=== PATIENT | male | born 1955 | race Caucasian/White ===

== ENCOUNTER 2023-08-22 23:55 | Inpatient (IN) | payer OTHER, SELFPAY ==
--- NOTE | ~2023-08-22 | US_ITS ---
EXAMINATION: US venous doppler LE BI EXAMINATION: US venous doppler LE DATE: 08/23/2023 14:49 INDICATION: Left calf red and swollen . TECHNIQUE: Grayscale images without and with compression and Doppler images of the left lower extremi ty veins were obtained. COMPARISON: None FINDINGS: The left common femoral vein, profunda (deep) femoral vein, femoral vein, popliteal vein, peroneal v ein, posterior tibial veins, gastrocnemius vein, and greater saphenous vein are patent. IMPRESSION: Patent left lower extremity veins. No evidence of deep venous thrombosis. Reviewed, dictated and finalized at location K. ARISON SHOPPER
--- NOTE | ~2023-08-22 | CT_ITS ---
EXAMINATION: CT chest abdomen pelvis w con DATE: 08/23/2023 08:18 INDICATION: Sepsis TECHNIQUE: Transaxial computed tomographic images of the chest, abdomen, and pelvis were obtained aft er the administration of 100 cc of Omnipaque 350 intravenous contrast. The dose-length product (DLP) was 2066.97 mGy-cm. Automated exposure control and iterative reconstruction technique were employed. COMPARISON: None FINDINGS: CHEST CT: There is mild emphysema. There is a 3.1 x 2.1 cm groundglass nodule in the right upper lobe. Addition al subsolid nodules of the right upper lobe measure 1.8 cm and 1.5 cm. There is mild dependent atelec tasis. No pleural effusion or pneumothorax. There is mild right hilar lymphadenopathy. The heart size is normal. Calcified coronary artery atherosclerosis is noted. There is moderate thoracic spondylosi s. ABDOMEN/PELVIS CT: The liver is diffusely low in attenuation when compared with the spleen, consistent with hepatic stea tosis. There is subtle nodularity of the liver surface. The spleen, pancreas, gallbladder, and adrena l glands are normal. Cysts of the kidneys measure up to 3.7 cm There is calcified atherosclerosis of the aorta and many of the other arteries. There is mild left inguinal lymphadenopathy and anterior brown bcutaneous edema in the proximal left lower extremity. There is moderate lumbar spondylosis. No free intraperitoneal gas or evidence of bowel obstruction. IMPRESSION: 1. Mild right inguinal lymphadenopathy with anterior inflammatory change in the proximal left lower e xtremity of unclear etiology. Recommend correlation for left lower extremity infection. 2. Groundglass nodules of the right upper lobe which could be infectious or inflammatory however mini nancy invasive adenocarcinoma could have a similar appearance. Follow-up chest CT in six months is re commended. 3. Diffuse hepatic steatosis. 4. Findings suggestive of cirrhosis. Reviewed, dictated and finalized at location L. [facility] IMPRESSION: 1. Mild right inguinal lymphadenopathy with anterior inflammatory change in the proximal left lower extremity of unclear etiology. Recommend correlation for l eft lower extremity infection. 2. Groundglass nodules of the right upper lobe which could be infectious or inf lammatory however minimally invasive adenocarcinoma could have a similar appear ance. Follow-up chest CT in six months is recommended. 3. Diffuse hepatic steatosis. 4. Findings suggestive of cirrhosis.
--- NOTE | ~2023-08-22 | XR_ITS ---
EXAMINATION: XR tibia fibula LT 2V INDICATION: Left leg redness and swelling TECHNIQUE: Two views of the left tibia are obtained on four radiographs. COMPARISON: None available FINDINGS: Bone alignment is normal. No fracture is identified. Calcified atherosclerosis is noted. Th ere is osteoarthritis of the ankle and knee. Posterior and plantar calcaneal enthesophytes are noted. There appears to be diffuse soft tissue edema of the lower limb. IMPRESSION: 1. Apparent diffuse soft tissue edema of the lower limb without acute osseous abnormality identified. Reviewed, dictated and finalized at location L. RTISING WRITER IMPRESSION: 1. Apparent diffuse soft tissue edema of the lower limb without acute osseous a bnormality identified.
--- NOTE | ~2023-08-22 | XR_ITS ---
Clinical Indication: Fever PA and lateral views of the chest: Comparison: 10/24/2017 Findings: The lungs are clear, without evidence of focal consolidation or pleural effusion. Cardiome diastinal silhouette is within normal limits. Bones and soft tissues are unremarkable. Impression: Normal chest. Reviewed, dictated and finalized at [facility]. [employer]NAGER Impression: Normal chest.
[2023-08-23] VITALS (25 sets, daily range): BP systolic 84–167; BP diastolic 47–68; PULSE 47–94; RESP 13–25; TEMP 36–38.4; O2SAT 90–97; BMI 42.6
--- NOTE | 2023-08-23 | ECHO_ITS ---
Patient Info Name: Brad Palacios Age: 68 years : 1955 Gender: Male Ht: 74 in Wt: 324 lbs BSA: 2.83 m2 HR: 50 bpm BP: 84 / 47 mmHg Heart Rhythm: Sinus Rhythm, Bradycardia Technical Quality: Good Exam Date: 08/23/2023 9:01 AM Exam Location: Echo Lab Patient Status: Inpatient Admit Date: 08/23/2023 Staff Ordering Physician: Flakita Wilder APRN Silk Hanger: Nohemy Lopes RDCS Attending Provider: Chris Gomez MD Referring Physician: Tina DAS; Exam Type: CA echo dop color flow w con Study Info Indications - sepsis Complete two-dimensional, color flow and Doppler transthoracic echocardiogram is performed with contrast to opacify the left ventricle and to improve the deliniation of the left ventricle endocardial borders. Contrast/Agitated Saline Contrast/Ag. Saline: Definity Amount: 3.00 ml Summary 1. Left ventricular chamber dimension is normal. 2. Left ventricular systolic function is normal, estimated at 55-60%. 3. There is moderately increased left ventricular wall thickness. 4. Right ventricular systolic function is normal. 5. There is mild aortic valve regurgitation. 6. There is mild tricuspid valve regurgitation. Left Ventricle Left ventricular chamber dimension is normal. Left ventricular systolic function is normal, estimated at 55-60%. There is moderately increased left ventricular wall thickness. Left ventricular septal wall motion is abnormal with septal motion related to bundle branch block. Right Ventricle Right ventricular chamber dimension is normal. Right ventricular systolic function is normal. Left Atria Left atrial chamber dimension is normal. Right Atria Right atrial chamber dimension is normal. Atrial Septum Intact interatrial septum visualized by color flow imaging. Aortic Valve The aortic valve is not well visualized. There is no aortic valve stenosis. There is mild aortic valve regurgitation. There is mild aortic valve calcification. Pulmonic Valve The pulmonic valve is not well visualized. There is trace pulmonic regurgitation. Mitral Valve There is trace mitral valve regurgitation. The mitral valve annulus is moderately calcified. Tricuspid Valve There is mild tricuspid valve regurgitation. Pericardium/Pleural The pericardium appears epicardial fat pad. There is no pericardial effusion. Inferior Vena Cava Inferior vena cava is not well visualized. Aorta The aortic root size at the sinus of Valsalva is normal. Left Ventricular Outflow Tract Name Value Normal LVOT 2D LVOT Diameter 2.19 cm LVOT Doppler LVOT Peak Gradient 3 mmHg LVOT Mean Gradient 2 mmHg LVOT VTI 28.62 cm LVOT VTI/AV VTI Ratio 0.82 LVOT Stroke Volume 108.15 ml LVOT CO 3.82 l/min LVOT CI 1.35 L/min/m2 Pulmonic Valve Name Value Normal
--- NOTE | 2023-08-23 00:06 | ECG_ITS ---
Measurements Intervals [place] Rate: 69 P: 11 MT: 195 QRS: 262 QRSD: 129 T: 44 QT: 418 QTc: 449 Interpretive Statements SINUS RHYTHM RIGHT AXIS DEVIATION POSSIBLE LEFT ATRIAL ENLARGEMENT RIGHT BUNDLE BRANCH BLOCK BASELINE ARTIFACT- I, II, III, AVR, AVL, AVF, V1-V2, V5-V6 ABNORMAL ECG NO PREVIOUS ECG AVAILABLE FOR COMPARISON Electronically Signed On 08-23-2023 6:36:45 [employer] by Amandeep Brand D.O.
--- NOTE | 2023-08-23 01:10 | ED.FEVER ---
HPI - Fever General Chief Complaint: Fever <Ju Lemus PA-C - Last Filed: 08/27/23 09:27> Stated Complaint: 103.2 fever at home <TJ Villagomez Last Filed: 08/27/23 09:27> Time Seen by Provider: 08/23/23 00:53 <TJ Villagomez Last Filed: 08/27/23 09:27> Source: patient <TJ Villagomez Last Filed: 08/27/23 09:27> Mode of arrival: ambulatory <TJ Villagomez Last Filed: 08/27/23 09:27> Limitations: no limitations <TJ Villagomez Last Filed: 08/27/23 09:27> History of Present Illness HPI Narrative: This is a 68 year old male that presents to the ER for cold symptoms present over the last couple of days. Reports acute worsening today with fevers and malaise. Reports cough, congestion, rhinorrhea. Reports shortness of breath and intermittent chest discomfort. He did a home COVID test which was negative. Took 1,000mg of Tylenol before coming in for further evaluation. <TJ Villagomez Last Filed: 08/27/23 09:27> Related Data Home Medications: Home Medications Medication Instructions Recorded Confirmed amiodarone 200 mg tablet 200 mg PO DAILY 08/23/23 08/23/23 amlodipine 5 mg tablet 5 mg PO DAILY 08/23/23 08/23/23 aspirin 81 mg tablet,delayed 81 mg PO DAILY 08/23/23 08/23/23 release atorvastatin 40 mg tablet 40 mg PO DAILY 08/23/23 08/23/23 isosorbide mononitrate 60 mg 60 mg PO DAILY 08/23/23 08/23/23 tablet,extended release 24 hr levothyroxine 100 mcg tablet 100 mcg PO DAILY 08/23/23 08/23/23 lisinopril 10 mg tablet 10 mg PO DAILY 08/23/23 08/23/23 metoprolol succinate 100 mg 100 mg PO DAILY 08/23/23 08/23/23 tablet,extended release 24 hr pantoprazole 40 mg tablet,delayed 40 mg PO DAILY 08/23/23 08/23/23 release rivaroxaban 20 mg tablet (Xarelto) 20 mg PO DAILY 08/23/23 08/23/23 <Ju Lemus PA-C - Last Filed: 08/27/23 09:27> Allergies/Adverse Reactions: Allergies Allergy/AdvReac Type Severity Reaction Status Date / Time No Known Allergies Allergy Verified 08/25/23 11:46 <Ju Lemus PA-C - Last Filed: 08/27/23 09:27> Review of Systems Review of Systems: CONSTITUTIONAL: Denies fever ENT: Reports rhinorrhea, congestion, sore throat CARDIOVASCULAR: Reports chest pain, and edema. RESPIRATORY: Reports cough and dyspnea. <Ju Lemus PA-C - Last Filed: 08/27/23 09:27> All systems reviewed & are unremarkable except as noted in HPI and below <Ju Lemus PA-C - Last Filed: 08/27/23 09:27> [facility] Past Medical History Medical History: Medical History (Updated 08/27/23 @ 09:27 by Ju Lemus PA-C) GERD (gastroesophageal reflux disease) History of atrial fibrillation History of hyperlipidemia History of hypertension Hypothyroidism Obstructive sleep apnea <Ju Lemus PA-C - Last Filed: 08/27/23 09:27> Social History Social History: Social History (System 08/25/23 @ 11:46 by Chepe Rojsa) Smoking packs per day: 1 Smoking cigarettes per day: 20.0 Smoking status: Current every day smoker Tobacco type: cigarettes Alcohol intake: never Substance use: never Lack of Transportation: No Lack of Food: Never True Current Housing: I Have Housing Concerned About Future Housing: No Difficulty Paying Gas/Electric Bills: No Difficulty Paying for Meds: No Currently Unemployed: No Education: High School Diploma/GED Difficulty w/ Childcare or Family Care: No Spiritual care concerns: No <Ju Lemus PA-C - Last Filed: 08/27/23 09:27> Exam Narrative: GENERAL: Ill-appearing, obese, and in no acute distress. HEAD: Normocephalic, atraumatic. EYES: EOMI. ENT: Nares clear, no rhinorrhea or epistaxis. Mucous membranes moist. Oropharynx without tonsillar hypertrophy exudate or other lesions. Bilateral TMs pearly eagle non-bulging NECK: Supple. No adenopathy or masses. CHEST: No respiratory distress. Rales in the right lower lobe.
[2023-08-23 01:20] LABS: Influenza A QL RT-PCR Negative (Negative); Influenza B QL RT-PCR Negative (Negative); RSV RNA, RT-PCR Negative (Negative); SARS-CoV-2 RNA PCR Negative (Negative)
[2023-08-23] MEDS: IBUPROFEN 600 MG TABLET PO (01:48)
[2023-08-23 02:59] LABS: Basophils Percent Auto 0.2 % (0.2-1.2); Eosinophils Percent Auto 0.2 % (0-4.4); Hematocrit 44.5 % (42.0-52.0); Hemoglobin 14.2 g/dL (14.0-18.0); Immature Granulocyte Absolute 0.07 K/mm3 (0.00-0.031); Immature Granulocyte Percent A 0.7 % (0-0.5); Lymphocytes Absolute Auto 0.32 K/mm3 (0.9-3.2); Lymphocytes Percent Auto 3.3 % (18.3-44.2); Mean Corpuscular HGB Conc 31.9 g/dl (32-36); Mean Corpuscular Hemoglobin 32.3 pg (26-34); Mean Corpuscular Volume 101.4 fl (80-100); Mean Platelet Volume 11.1 fl (7.4-10.4); Monocytes Absolute Auto 0.6 K/mm3 (0.1-0.6); Monocytes Percent Auto 6.2 % (2.6-8.5); Neutrophils Absolute Auto 8.8 K/mm3 (1.3-6.7); Neutrophils Percent Auto 89.4 % (45.5-73.1); Platelet Count Result 141 k/mm3 (150-375); Red Blood Count 4.39 M/mm3 (4.6-6.20); White Blood Count 9.8 K/mm3 (4.5-10.0)
[2023-08-23 03:10] LABS: INR 2.1; Prothrombin Time 24.5 Seconds (11.1-14.7)
[2023-08-23 03:11] LABS: Alanine Aminotransferase 26 U/L (6-50); Albumin Level 3.7 g/dL (3.5-5.1); Alkaline Phosphatase 89 U/L (38-126); Anion Gap 7 mmol/L (8-16); Aspartate Amino Transferase 25 U/L (17-59); Bilirubin,Total 0.8 mg/dL (0.2-1.3); Blood Urea Nitrogen 41 mg/dL (9-20); Calcium 9.1 mg/dL (8.4-10.2); Carbon Dioxide 22 mmol/L (22-30); Chloride 110 mmol/L (98-107); Estimated CRCL calculation 77 ml/min; Estimated Glomerular Filt Rate 55; Glucose 124 mg/dL (65-110); Potassium 2.9 mmol/L (3.4-5.0); Sodium 139 mmol/L (137-145)
[2023-08-23 03:12] LABS: Lactic Acid Reflex 2.2 mmol/L (0.7-2.0)
[2023-08-23 03:14] LABS: CRP 0.9 mg/dL (<1.0)
[2023-08-23 03:21] LABS: NT Pro B Type Natriuretic Pept 894 pg/mL (19.9-100)
[2023-08-23 03:23] LABS: Troponin I 0.031 ng/mL (0.000-0.034)
[2023-08-23] MEDS: SODIUM CHLORIDE 0.9% IV 500 ML 999 ML IV CONT (03:49)
[2023-08-23] MEDS: AZITHROMYCIN 500 MG/NS 250 ML 500 MG/250 ML BAG 250 MG IVPB (03:54)
[2023-08-23] MEDS: POTASSIUM CHLORIDE 20 MEQ ER TABLET 40 MEQ PO (04:22)
[2023-08-23] MEDS: SODIUM CHLORIDE 0.9% IV 2,000 ML 999 ML IV CONT (04:22)
[2023-08-23 05:57] LABS: Reflex Lactic Acid Yes or No Add Lactic
--- NOTE | 2023-08-23 06:41 | ADMGEN ---
This patient, Brad Palacios, was admitted to [facility] Surg Room 316-02. Patient/family oriented to hospital policies and general routines including ID bracelet, bed and alarms, visiting hours, pain management, procedures, bathroom and other care routines, personal items, smoking policy, room service/diet, and visiting hours. Information on how to activate the Rapid Response Team has been discussed. Patient/Family are encouraged to report perceived risks to care and to ask questions if they do not understand what they are told or what they should do.
[2023-08-23] MEDS: SODIUM CHLORIDE 0.9% IV 1,000 ML 999 ML IV CONT (07:11)
[2023-08-23 07:14] LABS: Lactic Acid 2.5 mmol/L (0.7-2.0)
--- NOTE | 2023-08-23 07:51 | PM.IMHP ---
H&P: HPI History of Present Illness Date/Time: 08/23/23 07:51 Chief Complaint: Fever Narrative: This is a 68 year old male with a significant past medical history of Atrial fibrillation, hyperlipidemia, and hypertension who presented to the hospital with fever, cough, congestion, rhinorrhea, malaise, and shortness of breath. Patient states that he has not been feeling well over the last 3 days. He did a home COVID test which was negative. T-max at home was 103.3. He took 1g Tylenol before presenting to the hospital. On arrival to the ER his temp was T-max 101.1, RR 25. Patient had a chest x-ray while in the ER which shown a normal chest as the read, he received 2L NS, and was given a dose of Rocephin and Azithromycin. Patient was admitted to the medical floor. Blood pressures slowly trended down through the night with the lowest read 84/47 and HR trending down to 48-50 when admitted to the Med floor. I was called about the low blood pressure with patient meeting sepsis criteria/ septic shock with the Temp of 101.1, RR-22, hypotension, lactic acid 2.5, and cellulitis of the left lower extremity. I gave the patient 1 L normal saline bolus due to the hypotension. also sent him for a chest abdomen pelvis CT which revealed mild right inguinal lymphadenopathy with anterior inflammatory change in the proximal left lower extremity unclear etiology, ground-glass nodules the right upper lobe which could be infectious or inflammatory, diffuse hepatic steatosis, cirrhosis. On examination his left leg was swollen greater than the right mostly in the calf area, with erythema and warmth to the touch. Vancomycin was added. According to the the patient he has had multiple issues with cellulitis in his legs where he had to come in for IV antibiotics. Patient denies any pain in the lower extremity. He also denies any lightheadedness, headache, visual changes, nausea, vomiting, diarrhea, abdominal pain, shortness of breath, chest pain. He does endorse fevers and chills. His lungs are relatively clear to auscultation, bowel sounds are present, he is passing gas, he denies any urinary symptoms. Review of Systems Review of Systems: All systems reviewed & are unremarkable except as noted in HPI and below Constitutional: Constitutional: Reports as per HPI, Reports no additional constitutional complaints and Reports chills Eyes: Eyes: Reports as per HPI, Reports no additional eye complaints and Denies blurry vision ENT: Reports system reviewed and no additional complaints, except as documented, Reports as per HPI and Denies nasal congestion Cardiovascular: Cardiovascular: Reports as per HPI, Reports no additional cardiovascular complaints, Denies chest pain, Reports pedal edema, Reports leg edema and Denies lightheadedness Respiratory: Respiratory: Reports as per HPI, Reports no additional respiratory complaints, Denies chest congestion, Denies cough, Denies dyspnea and Reports wheezing Gastrointestinal: Gastrointestinal: Reports as per HPI, Reports no additional gastrointestinal complaints, Denies abdominal pain, Denies diarrhea, Denies nausea and Denies vomiting Genitourinary: Genitourinary: Reports no additional male genitourinary complaints, Reports as per HPI, Denies hematuria, Denies dysuria, Denies flank pain, Denies urinary frequency and Denies urinary hesitancy Musculoskeletal: Musculoskeletal: Reports no additional musculoskeletal complaints, Reports as per HPI and Denies myalgias Integumentary/Breasts: Skin/Breast: Reports system reviewed and no additional complaints, except as docu and Reports as per HPI Neurologic: Reports system reviewed and no additional complaints, except as documented and Reports as per HPI Psychiatric: Psychiatric: Reports no additional psychiatric complaints, Reports as per HPI and Denies confusion [facility] Past Medical History Medical History (Updated 08/23/23 @ 16:33 by Flakita Wilder APRN) GERD (gastroesophageal reflux disease)
[2023-08-23 07:53] LABS: Alanine Aminotransferase 23 U/L (6-50); Albumin Level 3.1 g/dL (3.5-5.1); Alkaline Phosphatase 66 U/L (38-126); Anion Gap 7 mmol/L (8-16); Aspartate Amino Transferase 25 U/L (17-59); Bilirubin,Total 0.7 mg/dL (0.2-1.3); Blood Urea Nitrogen 42 mg/dL (9-20); Calcium 8.3 mg/dL (8.4-10.2); Carbon Dioxide 19 mmol/L (22-30); Chloride 114 mmol/L (98-107); Estimated CRCL calculation 72 ml/min; Estimated Glomerular Filt Rate 51; Glucose 111 mg/dL (65-110); Potassium 3.2 mmol/L (3.4-5.0); Sodium 140 mmol/L (137-145)
[2023-08-23 08:01] LABS: Hematocrit 41.8 % (42.0-52.0); Mean Corpuscular HGB Conc 31.1 g/dl (32-36); Mean Corpuscular Hemoglobin 32.3 pg (26-34); Mean Platelet Volume 11.9 fl (7.4-10.4); Platelet Count Result 132 k/mm3 (150-375); Red Blood Count 4.02 M/mm3 (4.6-6.20); Red Cell Distribution Width 13.2 % (11.5-14.5); White Blood Count 11.2 K/mm3 (4.5-10.0)
[2023-08-23 08:11] LABS: Procalcitonin 5.2 ng/mL
[2023-08-23] MEDS: PERFLUTREN LIPID MICROSPHERES 1.5 ML VIAL DILUTED TO 10 ML TOTAL VOLUME IV PUSH (09:10)
--- NOTE | 2023-08-23 09:39 | PC.NURSE ---
After bolus infused patient receiving ECHO. Will obtain vitals after ECHO complete.
[2023-08-23] MEDS: VANCOMYCIN 1,250 MG/NS 250 ML 1,250 MG/250 ML BAG 166.67 MG IVPB ×2 (09:54→12:20)
[2023-08-23] MEDS: POTASSIUM CHLORIDE 20 MEQ PACKET (FOR LIQUID) 40 MEQ PO (09:54)
[2023-08-23] MEDS: SODIUM CHLORIDE 0.9% IV 1,000 ML 100 ML IV CONT (09:55)
[2023-08-23] MEDS: LEVOTHYROXINE SODIUM 100 MCG TABLET PO (09:55)
[2023-08-23] MEDS: ASPIRIN 81 MG ENTERIC TABLET PO (09:55)
[2023-08-23] MEDS: ATORVASTATIN 40 MG TABLET PO (09:55)
[2023-08-23] MEDS: PANTOPRAZOLE 40 MG TABLET PO (09:55)
[2023-08-23] MEDS: ALBUTEROL SULFATE NEB 2.5 MG/3 ML INH INHALATION ×3 (10:08→21:58)
[2023-08-23 10:58] LABS: Band Neutrophils Percent 39 % (0-6); Lymphocytes Absolute Manual 0.11 K/mm3 (1.1-4.5); Monocytes Absolute Manual 0.78 K/mm3 (0.1-0.90); Monocytes Percent Manual 7 % (3-9); Neutrophils Percent Manual 53 % (46-73); Platelet Estimate Adequate (Adequate); Schistocytes None Seen (NORMAL); Total Cells Counted 100
[2023-08-23 11:00] LABS: Burr Cells 2+ (NORMAL)
[2023-08-23 12:10] LABS: Lactic Acid Reflex 1.6 mmol/L (0.7-2.0)
[2023-08-23] MEDS: RIVAROXABAN 20 MG TABLET PO (18:24)
[2023-08-23 18:30] LABS: Appearance Urine Clear (Clear); Bacteria Urine None Seen /hpf; Bilirubin Urine 1+ (Negative); Blood Urine Negative (Negative); Color Urine Dark Yellow (Yellow); Glucose Urine UA Negative (Negative); Ketones Urine Negative (Negative); Leukocyte Esterase Ur Negative LEU/UL (Negative); Nitrate Urine Negative (Negative); Non Pathogenic Casts 0-2; Protein Urine 1+ mg/dL (Negative); RBC Urine 0-2 /hpf (0-2); Squamous Epithelial Cell Urine None seen /hpf (Few); WBC Urine 0-5 /hpf
[2023-08-23 18:34] LABS: Add Urine Microscopic? YES; Specific Grav Ur 1.075 (1.001-1.035)
--- NOTE | 2023-08-23 18:53 | PC.NURSE ---
Rachna Alexander LPN administered care on this patient today. I agree with her assessments and charting.
[2023-08-23 19:22] LABS: MRSA (PCR) NOT DETECTED (NOT DETECTE)
[2023-08-24] VITALS (18 sets, daily range): BP systolic 120–145; BP diastolic 68–84; PULSE 62–113; RESP 14–18; TEMP 37.1–37.3; O2SAT 91–96
[2023-08-24] MEDS: SODIUM CHLORIDE 0.9% IV 1,000 ML 100 ML IV CONT ×3 (00:41→23:58)
[2023-08-24 06:09] LABS: Hematocrit 43.5 % (42.0-52.0); Hemoglobin 13.8 g/dL (14.0-18.0); Immature Platelet Fraction Pct 6.9 % (0.9-11.2); Mean Corpuscular HGB Conc 31.7 g/dl (32-36); Mean Corpuscular Hemoglobin 32.6 pg (26-34); Mean Corpuscular Volume 102.8 fl (80-100); Mean Platelet Volume 11.6 fl (7.4-10.4); Platelet Count Result 124 k/mm3 (150-375); Red Blood Count 4.23 M/mm3 (4.6-6.20); Red Cell Distribution Width 13.4 % (11.5-14.5); White Blood Count 14.2 K/mm3 (4.5-10.0)
[2023-08-24 06:19] LABS: Alanine Aminotransferase 29 U/L (6-50); Albumin Level 3.5 g/dL (3.5-5.1); Alkaline Phosphatase 66 U/L (38-126); Anion Gap 7 mmol/L (8-16); Aspartate Amino Transferase 29 U/L (17-59); Bilirubin,Total 0.8 mg/dL (0.2-1.3); Blood Urea Nitrogen 34 mg/dL (9-20); Calcium 8.6 mg/dL (8.4-10.2); Carbon Dioxide 20 mmol/L (22-30); Chloride 109 mmol/L (98-107); Estimated CRCL calculation 100 ml/min; Estimated Glomerular Filt Rate > 60; Glucose 110 mg/dL (65-110); Sodium 136 mmol/L (137-145)
[2023-08-24] MEDS: LEVOTHYROXINE SODIUM 100 MCG TABLET PO (06:19)
[2023-08-24] MEDS: cefTRIAXone 2 GM/NS 100 ML 2 GM/100 ML BAG IVPB (06:20)
[2023-08-24] MEDS: ALBUTEROL SULFATE NEB 2.5 MG/3 ML INH INHALATION ×3 (08:10→21:12)
[2023-08-24] MEDS: ASPIRIN 81 MG ENTERIC TABLET PO (08:31)
[2023-08-24] MEDS: AZITHROMYCIN 250 MG TABLET 500 MG PO (08:33)
[2023-08-24] MEDS: PANTOPRAZOLE 40 MG TABLET PO (08:34)
[2023-08-24] MEDS: ATORVASTATIN 40 MG TABLET PO (08:35)
[2023-08-24 10:24] LABS: Band Neutrophils Percent 21 % (0-6); Lymphocytes Absolute Manual 0.56 K/mm3 (1.1-4.5); Lymphocytes Percent Manual 4 % (18-44); Monocytes Absolute Manual 0.42 K/mm3 (0.1-0.90); Monocytes Percent Manual 3 % (3-9); Neutrophils Percent Manual 72 % (46-73); Total Cells Counted 100
[2023-08-24 10:25] LABS: Schistocytes None Seen (NORMAL)
--- NOTE | 2023-08-24 12:39 | P.PNIM_ITS ---
Progress Note: A&P Assessment and Plan (1) Sepsis: Code(s): A41.9 - Sepsis, unspecified organism Status: Acute Assessment and Plan: Patient meeting sepsis criteria with T-max of 11.1, respiratory rate 25, hypot ension with lowest reading 87/56, known cellulitis to left lower extremity, Lactic acidosis 2.5. * WBC 9.8 -> 11.2 -> 14.2 * Blood cultures were obtained * Azithromycin, Vancomycin and Rocephin initiated on admission. Patient has long history of infections that have been treated at [facility]. According to family he has had difficult to treat infections. Attempting to get records from [facility]. Discussed with ID pharmacist and recommended initiating Linezolid and discontinuing vancomycin azithromycin. * Fluids given and continued. * MRSA not detected (2) Sepsis associated hypotension: Code(s): A41.9 - Sepsis, unspecified organism; I95.9 - Hypotension, unspecified Status: Acute Assessment and Plan: see above (3) Cellulitis: Code(s): L03.90 - Cellulitis, unspecified Status: Acute Assessment and Plan: Patient presents with left lower extremity swelling, erythema, warmth. * CT of the chest pelvis contrast showed mild right inguinal lymphadenopathy anterior inflammatory change in the proximal left lower extremity * tib-fib x-ray showed apparent diffuse soft tissue edema the lower limb without acute osseous abnormality identified * patient has personal history of cellulitis to his lower extremity needing IV antibiotics, especially the left leg * ultrasound venous Doppler of the left lower extremity negative for DVT. * According to patient's he has history of strep infections unsure if it is wound or blood. * Discussed with ID pharmacist based on patient's history and he recommended linezolid and Rocephin. (4) Hypokalemia: Code(s): E87.6 - Hypokalemia Status: Acute Assessment and Plan: * initial potassium 2.9, he received 40 mEq of potassium in the ED * continue to trend labs * replenish potassium as needed (5) History of hyperlipidemia: Code(s): Z86.39 - Personal history of other endocrine, nutritional and metabolic disease Status: Chronic Assessment and Plan: * continue atorvastatin 40 mg p.o. daily, home dose (6) History of atrial fibrillation: Code(s): Z86.79 - Personal history of other diseases of the circulatory system Status: Acute Assessment and Plan: * amiodarone and metoprolol on hold due to his hypotension and his bradycardia with rate of 48 * echocardiogram with EF of 55-60%, mild aortic valve regurgitation and mild tricuspid valve regurgitation * continue Xarelto 20 mg p.o. daily (7) Hypothyroidism: Code(s): E03.9 - Hypothyroidism, unspecified Status: Acute Assessment and Plan: * continue levothyroxine 100 mcg p.o. daily, home dose (8) History of hypertension: Code(s): Z86.79 - Personal history of other diseases of the circulatory system Status: Acute Assessment and Plan: * patient currently hypotensive with blood pressures ranging 84/47 to 102/64 * continue to hold amlodipine 5 mg isosorbide 60 mg, lisinopril 10 mg due to hypotension due to sepsis (9) Wheezing on expiration: Code(s): R06.2 - Wheezing Status: Acute Assessment and Plan: Lungs clear to auscultation with notable wheezing * Albuterol breathing treatments o
--- NOTE | 2023-08-24 12:39 | PM.IMPN ---
Progress Note: A&P Assessment and Plan (1) Sepsis: Code(s): A41.9 - Sepsis, unspecified organism Status: Acute Assessment and Plan: Patient meeting sepsis criteria with T-max of 11.1, respiratory rate 25, hypotension with lowest reading 87/56, known cellulitis to left lower extremity, Lactic acidosis 2.5. WBC 9.8 -> 11.2 -> 14.2 Blood cultures were obtained Azithromycin, Vancomycin and Rocephin initiated on admission. Patient has long history of infections that have been treated at [facility]. According to family he has had difficult to treat infections. Attempting to get records from [facility]. Discussed with ID pharmacist and recommended initiating Linezolid and discontinuing vancomycin azithromycin. Fluids given and continued. MRSA not detected (2) Sepsis associated hypotension: Code(s): A41.9 - Sepsis, unspecified organism; I95.9 - Hypotension, unspecified Status: Acute Assessment and Plan: see above (3) Cellulitis: Code(s): L03.90 - Cellulitis, unspecified Status: Acute Assessment and Plan: Patient presents with left lower extremity swelling, erythema, warmth. CT of the chest pelvis contrast showed mild right inguinal lymphadenopathy anterior inflammatory change in the proximal left lower extremity tib-fib x-ray showed apparent diffuse soft tissue edema the lower limb without acute osseous abnormality identified patient has personal history of cellulitis to his lower extremity needing IV antibiotics, especially the left leg ultrasound venous Doppler of the left lower extremity negative for DVT. According to patient's he has history of strep infections unsure if it is wound or blood. Discussed with ID pharmacist based on patient's history and he recommended linezolid and Rocephin. (4) Hypokalemia: Code(s): E87.6 - Hypokalemia Status: Acute Assessment and Plan: initial potassium 2.9, he received 40 mEq of potassium in the ED continue to trend labs replenish potassium as needed (5) History of hyperlipidemia: Code(s): Z86.39 - Personal history of other endocrine, nutritional and metabolic disease Status: Chronic Assessment and Plan: continue atorvastatin 40 mg p.o. daily, home dose (6) History of atrial fibrillation: Code(s): Z86.79 - Personal history of other diseases of the circulatory system Status: Acute Assessment and Plan: amiodarone and metoprolol on hold due to his hypotension and his bradycardia with rate of 48 echocardiogram with EF of 55-60%, mild aortic valve regurgitation and mild tricuspid valve regurgitation continue Xarelto 20 mg p.o. daily (7) Hypothyroidism: Code(s): E03.9 - Hypothyroidism, unspecified Status: Acute Assessment and Plan: continue levothyroxine 100 mcg p.o. daily, home dose (8) History of hypertension: Code(s): Z86.79 - Personal history of other diseases of the circulatory system Status: Acute Assessment and Plan: patient currently hypotensive with blood pressures ranging 84/47 to 102/64 continue to hold amlodipine 5 mg isosorbide 60 mg, lisinopril 10 mg due to hypotension due to sepsis (9) Wheezing on expiration: Code(s): R06.2 - Wheezing Status: Acute Assessment and Plan: Lungs clear to auscultation with notable wheezing Albuterol breathing treatments ordered scheduled and p.r.n. patient uses a CPAP for ANTHONY, he did state that he does not regularly clean the tubing MRSA swab negative chlamydia pneumoniae, mycoplasma pneumoniae, urine strep, and urine Legionella sent as precautionary. Sputum culture negative. Subjective Date/time seen: 08/24/23 12:39 Interval history: Had long discussion with patient and patient's about direction in which we will proceed with his care. I discussed with ELHAM christianson
[2023-08-24] MEDS: LINEZOLID 600 MG TABLET PO ×2 (12:59→21:57)
--- NOTE | 2023-08-24 13:10 | PC.NURSE ---
On 08/24/23, the student, [Dejah Michele ], provided care and completed [facility] documentation on this patient. I have reviewed the student's documentation and agree with the findings.
[2023-08-24 13:32] LABS: Hematocrit 41.3 % (42.0-52.0); Hemoglobin 13.2 g/dL (14.0-18.0); Immature Platelet Fraction Pct 7.2 % (0.9-11.2); Mean Corpuscular Hemoglobin 32.8 pg (26-34); Mean Corpuscular Volume 102.5 fl (80-100); Mean Platelet Volume 11.8 fl (7.4-10.4); Platelet Count Result 119 k/mm3 (150-375); Red Blood Count 4.03 M/mm3 (4.6-6.20); Red Cell Distribution Width 13.3 % (11.5-14.5); White Blood Count 13.6 K/mm3 (4.5-10.0)
[2023-08-24] MEDS: HYDROcodone/acetaminophen (*CRX) 5-325 MG TABLET 1 TAB PO (15:19)
[2023-08-24] MEDS: RIVAROXABAN 20 MG TABLET PO (17:12)
[2023-08-25] VITALS (20 sets, daily range): BP systolic 122–143; BP diastolic 78–95; PULSE 78–100; RESP 16–20; TEMP 36.7–37.3; O2SAT 93–96
[2023-08-25] MEDS: ALBUTEROL SULFATE NEB 2.5 MG/3 ML INH INHALATION ×4 (02:34→19:12)
[2023-08-25] MEDS: LEVOTHYROXINE SODIUM 100 MCG TABLET PO (05:51)
[2023-08-25] MEDS: cefTRIAXone 2 GM/NS 100 ML 2 GM/100 ML BAG IVPB (05:51)
[2023-08-25 06:18] LABS: Alanine Aminotransferase 24 U/L (6-50); Albumin Level 3.1 g/dL (3.5-5.1); Alkaline Phosphatase 71 U/L (38-126); Anion Gap 4 mmol/L (8-16); Aspartate Amino Transferase 24 U/L (17-59); Basophils Percent Auto 0.2 % (0.2-1.2); Bilirubin,Total 1.2 mg/dL (0.2-1.3); Blood Urea Nitrogen 20 mg/dL (9-20); Calcium 8.4 mg/dL (8.4-10.2); Carbon Dioxide 24 mmol/L (22-30); Chloride 107 mmol/L (98-107); Eosinophils Percent Auto 0.1 % (0-4.4); Estimated CRCL calculation 123 ml/min; Estimated Glomerular Filt Rate > 60; Glucose 93 mg/dL (65-110); Hematocrit 40.8 % (42.0-52.0); Immature Granulocyte Absolute 0.11 K/mm3 (0.00-0.031); Immature Platelet Fraction Pct 8.2 % (0.9-11.2); Lymphocytes Absolute Auto 0.79 K/mm3 (0.9-3.2); Lymphocytes Percent Auto 7.3 % (18.3-44.2); Mean Corpuscular HGB Conc 31.9 g/dl (32-36); Mean Corpuscular Hemoglobin 32.4 pg (26-34); Mean Corpuscular Volume 101.7 fl (80-100); Mean Platelet Volume 11.8 fl (7.4-10.4); Monocytes Absolute Auto 0.7 K/mm3 (0.1-0.6); Monocytes Percent Auto 6.2 % (2.6-8.5); Neutrophils Absolute Auto 9.3 K/mm3 (1.3-6.7); Neutrophils Percent Auto 85.2 % (45.5-73.1); Platelet Count Result 124 k/mm3 (150-375); Potassium 3.8 mmol/L (3.4-5.0); Red Blood Count 4.01 M/mm3 (4.6-6.20); Red Cell Distribution Width 13.1 % (11.5-14.5); Sodium 135 mmol/L (137-145); White Blood Count 10.9 K/mm3 (4.5-10.0)
[2023-08-25] MEDS: LINEZOLID 600 MG TABLET PO ×2 (09:17→21:05)
[2023-08-25] MEDS: AMIODARONE HCL 200 MG TABLET PO (09:17)
[2023-08-25] MEDS: ATORVASTATIN 40 MG TABLET PO (09:17)
[2023-08-25] MEDS: PANTOPRAZOLE 40 MG TABLET PO (09:17)
[2023-08-25] MEDS: ASPIRIN 81 MG ENTERIC TABLET PO (09:18)
--- NOTE | 2023-08-25 13:09 | P.PNIM_ITS ---
Progress Note: A&P Assessment and Plan (1) Sepsis: Code(s): A41.9 - Sepsis, unspecified organism Status: Acute Assessment and Plan: Patient meeting sepsis criteria with T-max of 11.1, respiratory rate 25, hypot ension with lowest reading 87/56, known cellulitis to left lower extremity, Lactic acidosis 2.5. * WBC 9.8 -> 11.2 -> 14.2 ->10.9 * Blood cultures no growth to date * Azithromycin, Vancomycin and Rocephin initiated on admission. Patient has long history of infections that have been treated at [facility]. According to family he has had difficult to treat infections. Attempting to get records fr [facility], [facility]. Discussed with ID pharmacist and recommended initiating Linezolid and discontinuing vancomycin azithromycin. * Fluids discontinue. * MRSA not detected (2) Sepsis associated hypotension: Code(s): A41.9 - Sepsis, unspecified organism; I95.9 - Hypotension, unspecified Status: Acute Assessment and Plan: see above (3) Cellulitis: Code(s): L03.90 - Cellulitis, unspecified Status: Acute Assessment and Plan: Patient presents with left lower extremity swelling, erythema, warmth. * CT of the chest pelvis contrast showed mild right inguinal lymphadenopathy anterior inflammatory change in the proximal left lower extremity * tib-fib x-ray showed apparent diffuse soft tissue edema the lower limb without acute osseous abnormality identified * patient has personal history of cellulitis to his lower extremity needing IV antibiotics, especially the left leg * ultrasound venous Doppler of the left lower extremity negative for DVT. * According to patient's he has history of strep infections unsure if it is wound or blood. * Discussed with ID pharmacist based on patient's history and he recommended linezolid and Rocephin. (4) Hypokalemia: Code(s): E87.6 - Hypokalemia Status: Acute Assessment and Plan: * initial potassium 2.9, he received 40 mEq of potassium in the ED * continue to trend labs * replenish potassium as needed (5) History of hyperlipidemia: Code(s): Z86.39 - Personal history of other endocrine, nutritional and metabolic disease Status: Chronic Assessment and Plan: * continue atorvastatin 40 mg p.o. daily, home dose (6) History of atrial fibrillation: Code(s): Z86.79 - Personal history of other diseases of the circulatory system Status: Acute Assessment and Plan: * amiodarone and metoprolol on hold due to his hypotension and his bradycardia with rate of 48 * echocardiogram with EF of 55-60%, mild aortic valve regurgitation and mild tricuspid valve regurgitation * continue Xarelto 20 mg p.o. daily (7) Hypothyroidism: Code(s): E03.9 - Hypothyroidism, unspecified Status: Acute Assessment and Plan: * continue levothyroxine 100 mcg p.o. daily, home dose (8) History of hypertension: Code(s): Z86.79 - Personal history of other diseases of the circulatory system Status: Acute Assessment and Plan: * patient currently hypotensive with blood pressures ranging 84/47 to 102/64 * continue to hold amlodipine 5 mg isosorbide 60 mg, lisinopril 10 mg due to hypotension due to sepsis (9) Wheezing on expiration: Code(s): R06.2 - Wheezing Status: Acute Assessment and Plan: Lungs clear to auscultation with notable wheezing * [place]
--- NOTE | 2023-08-25 13:09 | PM.IMPN ---
Progress Note: A&P Assessment and Plan (1) Sepsis: Code(s): A41.9 - Sepsis, unspecified organism Status: Acute Assessment and Plan: Patient meeting sepsis criteria with T-max of 11.1, respiratory rate 25, hypotension with lowest reading 87/56, known cellulitis to left lower extremity, Lactic acidosis 2.5. WBC 9.8 -> 11.2 -> 14.2 ->10.9 Blood cultures no growth to date Azithromycin, Vancomycin and Rocephin initiated on admission. Patient has long history of infections that have been treated at [facility]. According to family he has had difficult to treat infections. Attempting to get records from [facility]. Discussed with ID pharmacist and recommended initiating Linezolid and discontinuing vancomycin azithromycin. Fluids discontinue. MRSA not detected (2) Sepsis associated hypotension: Code(s): A41.9 - Sepsis, unspecified organism; I95.9 - Hypotension, unspecified Status: Acute Assessment and Plan: see above (3) Cellulitis: Code(s): L03.90 - Cellulitis, unspecified Status: Acute Assessment and Plan: Patient presents with left lower extremity swelling, erythema, warmth. CT of the chest pelvis contrast showed mild right inguinal lymphadenopathy anterior inflammatory change in the proximal left lower extremity tib-fib x-ray showed apparent diffuse soft tissue edema the lower limb without acute osseous abnormality identified patient has personal history of cellulitis to his lower extremity needing IV antibiotics, especially the left leg ultrasound venous Doppler of the left lower extremity negative for DVT. According to patient's he has history of strep infections unsure if it is wound or blood. Discussed with ID pharmacist based on patient's history and he recommended linezolid and Rocephin. (4) Hypokalemia: Code(s): E87.6 - Hypokalemia Status: Acute Assessment and Plan: initial potassium 2.9, he received 40 mEq of potassium in the ED continue to trend labs replenish potassium as needed (5) History of hyperlipidemia: Code(s): Z86.39 - Personal history of other endocrine, nutritional and metabolic disease Status: Chronic Assessment and Plan: continue atorvastatin 40 mg p.o. daily, home dose (6) History of atrial fibrillation: Code(s): Z86.79 - Personal history of other diseases of the circulatory system Status: Acute Assessment and Plan: amiodarone and metoprolol on hold due to his hypotension and his bradycardia with rate of 48 echocardiogram with EF of 55-60%, mild aortic valve regurgitation and mild tricuspid valve regurgitation continue Xarelto 20 mg p.o. daily (7) Hypothyroidism: Code(s): E03.9 - Hypothyroidism, unspecified Status: Acute Assessment and Plan: continue levothyroxine 100 mcg p.o. daily, home dose (8) History of hypertension: Code(s): Z86.79 - Personal history of other diseases of the circulatory system Status: Acute Assessment and Plan: patient currently hypotensive with blood pressures ranging 84/47 to 102/64 continue to hold amlodipine 5 mg isosorbide 60 mg, lisinopril 10 mg due to hypotension due to sepsis (9) Wheezing on expiration: Code(s): R06.2 - Wheezing Status: Acute Assessment and Plan: Lungs clear to auscultation with notable wheezing Albuterol breathing treatments ordered scheduled and p.r.n. patient uses a CPAP for ANTHONY, he did state that he does not regularly clean the tubing MRSA swab negative chlamydia pneumoniae, mycoplasma pneumoniae, urine strep, and urine Legionella sent as precautionary. Sputum culture negative. Subjective Date/time seen: 08/25/23 13:09 Interval history: Patient doing much better today rice at bedside. Erythema seems to have improved although edema is about the same. White count
[2023-08-25] MEDS: HYDROcodone/acetaminophen (*CRX) 5-325 MG TABLET 1 TAB PO (14:36)
[2023-08-25] MEDS: RIVAROXABAN 20 MG TABLET PO (17:05)
[2023-08-26] VITALS (18 sets, daily range): BP systolic 121–127; BP diastolic 84–88; PULSE 63–104; RESP 16–18; TEMP 36.2–36.9; O2SAT 93–99
[2023-08-26] MEDS: ALBUTEROL SULFATE NEB 2.5 MG/3 ML INH INHALATION ×4 (01:30→19:41)
[2023-08-26] MEDS: LEVOTHYROXINE SODIUM 100 MCG TABLET PO (05:54)
[2023-08-26] MEDS: cefTRIAXone 2 GM/NS 100 ML 2 GM/100 ML BAG IVPB (05:58)
[2023-08-26 07:23] LABS: Basophils Percent Auto 0.4 % (0.2-1.2); Eosinophils Percent Auto 0.4 % (0-4.4); Hemoglobin 13.5 g/dL (14.0-18.0); Immature Granulocyte Absolute 0.09 K/mm3 (0.00-0.031); Immature Granulocyte Percent A 1.3 % (0-0.5); Immature Platelet Fraction Pct 6.6 % (0.9-11.2); Lymphocytes Absolute Auto 0.74 K/mm3 (0.9-3.2); Lymphocytes Percent Auto 10.8 % (18.3-44.2); Mean Corpuscular HGB Conc 32.9 g/dl (32-36); Mean Corpuscular Hemoglobin 32.4 pg (26-34); Mean Corpuscular Volume 98.3 fl (80-100); Mean Platelet Volume 11.2 fl (7.4-10.4); Monocytes Absolute Auto 0.8 K/mm3 (0.1-0.6); Monocytes Percent Auto 11.1 % (2.6-8.5); Neutrophils Absolute Auto 5.2 K/mm3 (1.3-6.7); Platelet Count Result 133 k/mm3 (150-375); Red Blood Count 4.17 M/mm3 (4.6-6.20); Red Cell Distribution Width 12.7 % (11.5-14.5); White Blood Count 6.9 K/mm3 (4.5-10.0)
[2023-08-26 07:32] LABS: Alanine Aminotransferase 30 U/L (6-50); Albumin Level 3.2 g/dL (3.5-5.1); Alkaline Phosphatase 76 U/L (38-126); Anion Gap 7 mmol/L (8-16); Aspartate Amino Transferase 26 U/L (17-59); Bilirubin,Total 0.9 mg/dL (0.2-1.3); Blood Urea Nitrogen 13 mg/dL (9-20); Calcium 8.4 mg/dL (8.4-10.2); Carbon Dioxide 23 mmol/L (22-30); Chloride 105 mmol/L (98-107); Estimated CRCL calculation 139 ml/min; Estimated Glomerular Filt Rate > 60; Glucose 98 mg/dL (65-110); Potassium 3.4 mmol/L (3.4-5.0); Sodium 135 mmol/L (137-145)
[2023-08-26] MEDS: ASPIRIN 81 MG ENTERIC TABLET PO (09:22)
[2023-08-26] MEDS: LINEZOLID 600 MG TABLET PO ×2 (09:22→21:01)
[2023-08-26] MEDS: ATORVASTATIN 40 MG TABLET PO (09:22)
[2023-08-26] MEDS: AMIODARONE HCL 200 MG TABLET PO (09:22)
[2023-08-26] MEDS: PANTOPRAZOLE 40 MG TABLET PO (09:22)
--- NOTE | 2023-08-26 12:01 | IVDEFINITY ---
Prior to administration of IV Definity the patient was educated on the risks and benefits of the imaging enhancing agent including potential adverse side effects. The patient verbalized understanding. Allergies were verified. No exclusion criteria were identified and at least one of the following inclusion criteria were met: 1) physician request, 2) patient technically difficult to image (per the [place] [employer] guidelines of two or more segments not discernable within the apical view), or 3) questionable left ventricular function. ?
[2023-08-26] MEDS: HYDROcodone/acetaminophen (*CRX) 5-325 MG TABLET 1 TAB PO (12:04)
--- NOTE | 2023-08-26 14:52 | P.PNIM_ITS ---
Progress Note: A&P Assessment and Plan (1) Cellulitis: Code(s): L03.90 - Cellulitis, unspecified Status: Acute Assessment and Plan: Patient presents with left lower extremity swelling, erythema, warmth. * CT of the chest pelvis contrast showed mild right inguinal lymphadenopathy anterior inflammatory change in the proximal left lower extremity * tib-fib x-ray showed apparent diffuse soft tissue edema the lower limb without acute osseous abnormality identified * patient has personal history of cellulitis to his lower extremity needing IV antibiotics, especially the left leg * ultrasound venous Doppler of the left lower extremity negative for DVT. * According to patient's he has history of strep infections unsure if it is wound or blood. * Discussed with ID pharmacist based on patient's history and he recommended linezolid and Rocephin. * Patient wanting to try compression stockings and he can proceed with that. Will try 1 dose of furosemide to help with edema. (2) Sepsis: Code(s): A41.9 - Sepsis, unspecified organism Status: Resolved Assessment and Plan: Patient meeting sepsis criteria with T-max of 11.1, respiratory rate 25, hypotension with lowest reading 87/56, known cellulitis to left lower extremity, Lactic acidosis 2.5. * WBC Back down within normal limits. * Blood cultures no growth to date * Azithromycin, Vancomycin and Rocephin initiated on admission. Patient has long history of infections that have been treated at [facility]. According to family he has had difficult to treat infections. Attempting to get records from [facility]. Discussed with ID pharmacist and recommended initiating Linezolid and discontinuing vancomycin azithromycin. * Fluids discontinue. * MRSA not detected Resolved (3) Sepsis associated hypotension: Code(s): A41.9 - Sepsis, unspecified organism; I95.9 - Hypotension, unspecified Status: Resolved Assessment and Plan: see above (4) Hypokalemia: Code(s): E87.6 - Hypokalemia Status: Resolved Assessment and Plan: * initial potassium 2.9, he received 40 mEq of potassium in the ED * continue to trend labs * replenish potassium as needed (5) History of hyperlipidemia: Code(s): Z86.39 - Personal history of other endocrine, nutritional and metabolic disease Status: Chronic Assessment and Plan: * continue atorvastatin 40 mg p.o. daily, home dose (6) History of atrial fibrillation: Code(s): Z86.79 - Personal history of other diseases of the circulatory system Status: Acute Assessment and Plan: * amiodarone and metoprolol on hold due to his hypotension and his bradycardia with rate of 48 * echocardiogram with EF of 55-60%, mild aortic valve regurgitation and mild tricuspid valve regurgitation * continue Xarelto 20 mg p.o. daily (7) Hypothyroidism: Code(s): E03.9 - Hypothyroidism, unspecified Status: Acute Assessment and Plan: * continue levothyroxine 100 mcg p.o. daily, home dose (8) History of hypertension: Code(s): Z86.79 - Personal history of other diseases of the circulatory system Status: Acute Assessment and Plan: * patient currently hypotensive with blood pressures ranging 84/47 to 102/64 * continue to hold amlodipine 5 mg isosorbide 60 mg, lisinopril 10 mg due to hypotension due to sepsis (9) Wheezing on expiration:
--- NOTE | 2023-08-26 14:52 | PM.IMPN ---
Progress Note: A&P Assessment and Plan (1) Cellulitis: Code(s): L03.90 - Cellulitis, unspecified Status: Acute Assessment and Plan: Patient presents with left lower extremity swelling, erythema, warmth. CT of the chest pelvis contrast showed mild right inguinal lymphadenopathy anterior inflammatory change in the proximal left lower extremity tib-fib x-ray showed apparent diffuse soft tissue edema the lower limb without acute osseous abnormality identified patient has personal history of cellulitis to his lower extremity needing IV antibiotics, especially the left leg ultrasound venous Doppler of the left lower extremity negative for DVT. According to patient's he has history of strep infections unsure if it is wound or blood. Discussed with ID pharmacist based on patient's history and he recommended linezolid and Rocephin. Patient wanting to try compression stockings and he can proceed with that. Will try 1 dose of furosemide to help with edema. (2) Sepsis: Code(s): A41.9 - Sepsis, unspecified organism Status: Resolved Assessment and Plan: Patient meeting sepsis criteria with T-max of 11.1, respiratory rate 25, hypotension with lowest reading 87/56, known cellulitis to left lower extremity, Lactic acidosis 2.5. WBC Back down within normal limits. Blood cultures no growth to date Azithromycin, Vancomycin and Rocephin initiated on admission. Patient has long history of infections that have been treated at [facility]. According to family he has had difficult to treat infections. Attempting to get records from [facility]. Discussed with ID pharmacist and recommended initiating Linezolid and discontinuing vancomycin azithromycin. Fluids discontinue. MRSA not detected Resolved (3) Sepsis associated hypotension: Code(s): A41.9 - Sepsis, unspecified organism; I95.9 - Hypotension, unspecified Status: Resolved Assessment and Plan: see above (4) Hypokalemia: Code(s): E87.6 - Hypokalemia Status: Resolved Assessment and Plan: initial potassium 2.9, he received 40 mEq of potassium in the ED continue to trend labs replenish potassium as needed (5) History of hyperlipidemia: Code(s): Z86.39 - Personal history of other endocrine, nutritional and metabolic disease Status: Chronic Assessment and Plan: continue atorvastatin 40 mg p.o. daily, home dose (6) History of atrial fibrillation: Code(s): Z86.79 - Personal history of other diseases of the circulatory system Status: Acute Assessment and Plan: amiodarone and metoprolol on hold due to his hypotension and his bradycardia with rate of 48 echocardiogram with EF of 55-60%, mild aortic valve regurgitation and mild tricuspid valve regurgitation continue Xarelto 20 mg p.o. daily (7) Hypothyroidism: Code(s): E03.9 - Hypothyroidism, unspecified Status: Acute Assessment and Plan: continue levothyroxine 100 mcg p.o. daily, home dose (8) History of hypertension: Code(s): Z86.79 - Personal history of other diseases of the circulatory system Status: Acute Assessment and Plan: patient currently hypotensive with blood pressures ranging 84/47 to 102/64 continue to hold amlodipine 5 mg isosorbide 60 mg, lisinopril 10 mg due to hypotension due to sepsis (9) Wheezing on expiration: Code(s): R06.2 - Wheezing Status: Acute Assessment and Plan: Lungs clear to auscultation with notable wheezing Albuterol breathing treatments ordered scheduled and p.r.n. patient uses a CPAP for ANTHONY, he did state that he does not regularly clean the tubing MRSA swab negative chlamydia pneumoniae, mycoplasma pneumoniae, urine strep, and urine Legionella sent as precautionary. Sputum culture negative. Subjective Date/time seen: 08/26/23 14
[2023-08-26] MEDS: FUROSEMIDE INJ 40 MG/4 ML VIAL IV PUSH (15:58)
[2023-08-26] MEDS: RIVAROXABAN 20 MG TABLET PO (17:20)
[2023-08-26] MEDS: guaiFENesin 600 MG/DEXTROMETHORPHAN 30 MG SR TAB 12 HR 1 TAB PO (21:01)
[2023-08-27] VITALS (16 sets, daily range): BP systolic 131–138; BP diastolic 86–87; PULSE 54–113; RESP 18–22; TEMP 36.1–36.6; O2SAT 96–97
[2023-08-27 00:06] LABS: Pneumococcal Antigen Urine Not Detected (Not Detected)
[2023-08-27] MEDS: ALBUTEROL SULFATE NEB 2.5 MG/3 ML INH INHALATION ×3 (02:02→17:52)
[2023-08-27] MEDS: cefTRIAXone 2 GM/NS 100 ML 2 GM/100 ML BAG IVPB (05:08)
[2023-08-27] MEDS: LEVOTHYROXINE SODIUM 100 MCG TABLET PO (05:31)
[2023-08-27 06:32] LABS: Basophils Percent Auto 0.6 % (0.2-1.2); Eosinophils Percent Auto 0.6 % (0-4.4); Hematocrit 43.6 % (42.0-52.0); Hemoglobin 14.1 g/dL (14.0-18.0); Immature Granulocyte Absolute 0.21 K/mm3 (0.00-0.031); Lymphocytes Absolute Auto 1.39 K/mm3 (0.9-3.2); Mean Corpuscular HGB Conc 32.3 g/dl (32-36); Mean Corpuscular Hemoglobin 32.1 pg (26-34); Mean Corpuscular Volume 99.3 fl (80-100); Neutrophils Absolute Auto 4.2 K/mm3 (1.3-6.7); Neutrophils Percent Auto 60.8 % (45.5-73.1); Platelet Count Result 154 k/mm3 (150-375); Red Blood Count 4.39 M/mm3 (4.6-6.20); Red Cell Distribution Width 12.7 % (11.5-14.5); White Blood Count 6.9 K/mm3 (4.5-10.0)
[2023-08-27 06:47] LABS: Alanine Aminotransferase 43 U/L (6-50); Albumin Level 3.3 g/dL (3.5-5.1); Alkaline Phosphatase 91 U/L (38-126); Anion Gap 7 mmol/L (8-16); Aspartate Amino Transferase 33 U/L (17-59); Bilirubin,Total 0.9 mg/dL (0.2-1.3); Blood Urea Nitrogen 12 mg/dL (9-20); Calcium 8.4 mg/dL (8.4-10.2); Carbon Dioxide 27 mmol/L (22-30); Chloride 103 mmol/L (98-107); Estimated CRCL calculation 110 ml/min; Estimated Glomerular Filt Rate > 60; Glucose 101 mg/dL (65-110); Potassium 3.4 mmol/L (3.4-5.0); Sodium 137 mmol/L (137-145)
[2023-08-27] MEDS: guaiFENesin 600 MG/DEXTROMETHORPHAN 30 MG SR TAB 12 HR 1 TAB PO ×2 (09:02→21:27)
[2023-08-27] MEDS: ATORVASTATIN 40 MG TABLET PO (09:02)
[2023-08-27] MEDS: ASPIRIN 81 MG ENTERIC TABLET PO (09:03)
[2023-08-27] MEDS: AMIODARONE HCL 200 MG TABLET PO (09:03)
[2023-08-27] MEDS: METOPROLOL SUCCINATE EXT REL 100 MG TABCR PO (09:03)
[2023-08-27] MEDS: PANTOPRAZOLE 40 MG TABLET PO (09:03)
[2023-08-27] MEDS: LINEZOLID 600 MG TABLET PO ×2 (09:03→21:27)
--- NOTE | 2023-08-27 14:33 | P.PNIM_ITS ---
Progress Note: A&P Assessment and Plan (1) Cellulitis: Code(s): L03.90 - Cellulitis, unspecified Status: Acute Assessment and Plan: Patient presents with left lower extremity swelling, erythema, warmth. * CT of the chest pelvis contrast showed mild right inguinal lymphadenopathy anterior inflammatory change in the proximal left lower extremity * tib-fib x-ray showed apparent diffuse soft tissue edema the lower limb without acute osseous abnormality identified * patient has personal history of cellulitis to his lower extremity needing IV antibiotics, especially the left leg * ultrasound venous Doppler of the left lower extremity negative for DVT. * According to patient's he has history of strep infections unsure if it is wound or blood. * Discussed with ID pharmacist based on patient's history and he recommended linezolid and Rocephin. * Patient wanting to try compression stockings and he can proceed with that. * furosemide p.r.n. for edema * Will try one dose of solu-medrol. Could be experiancing vasculitis. (2) Sepsis: Code(s): A41.9 - Sepsis, unspecified organism Status: Resolved Assessment and Plan: Patient meeting sepsis criteria with T-max of 11.1, respiratory rate 25, hypotension with lowest reading 87/56, known cellulitis to left lower extremity, Lactic acidosis 2.5. * WBC back down within normal limits. * Blood cultures no growth to date * Azithromycin, Vancomycin and Rocephin initiated on admission. Patient has long history of infections that have been treated at [facility]. According to family he has had difficult to treat infections. Attempting to get records from [facility]. Discussed with ID pharmacist and recommended initiating Linezolid and discontinuing vancomycin azithromycin. * Fluids discontinue. * MRSA not detected Resolved (3) Sepsis associated hypotension: Code(s): A41.9 - Sepsis, unspecified organism; I95.9 - Hypotension, unspecified Status: Resolved Assessment and Plan: see above (4) Hypokalemia: Code(s): E87.6 - Hypokalemia Status: Resolved Assessment and Plan: * initial potassium 2.9, he received 40 mEq of potassium in the ED * continue to trend labs * replenish potassium as needed (5) History of hyperlipidemia: Code(s): Z86.39 - Personal history of other endocrine, nutritional and metabolic disease Status: Chronic Assessment and Plan: * continue atorvastatin 40 mg p.o. daily, home dose (6) History of atrial fibrillation: Code(s): Z86.79 - Personal history of other diseases of the circulatory system Status: Acute Assessment and Plan: * amiodarone and metoprolol on hold due to his hypotension and his bradycardia with rate of 48 * echocardiogram with EF of 55-60%, mild aortic valve regurgitation and mild tricuspid valve regurgitation * continue Xarelto 20 mg p.o. daily (7) Hypothyroidism: Code(s): E03.9 - Hypothyroidism, unspecified Status: Acute Assessment and Plan: * continue levothyroxine 100 mcg p.o. daily, home dose (8) History of hypertension: Code(s): Z86.79 - Personal history of other diseases of the circulatory system Status: Acute Assessment and Plan: * patient currently hypotensive with blood pressures ranging 84/47 to 102/64 * continue to hold amlodipine 5 mg isosorbide 60 mg, lisinopril 10 mg due to hypotension due to sepsis
--- NOTE | 2023-08-27 14:33 | PM.IMPN ---
Progress Note: A&P Assessment and Plan (1) Cellulitis: Code(s): L03.90 - Cellulitis, unspecified Status: Acute Assessment and Plan: Patient presents with left lower extremity swelling, erythema, warmth. CT of the chest pelvis contrast showed mild right inguinal lymphadenopathy anterior inflammatory change in the proximal left lower extremity tib-fib x-ray showed apparent diffuse soft tissue edema the lower limb without acute osseous abnormality identified patient has personal history of cellulitis to his lower extremity needing IV antibiotics, especially the left leg ultrasound venous Doppler of the left lower extremity negative for DVT. According to patient's he has history of strep infections unsure if it is wound or blood. Discussed with ID pharmacist based on patient's history and he recommended linezolid and Rocephin. Patient wanting to try compression stockings and he can proceed with that. furosemide p.r.n. for edema Will try one dose of solu-medrol. Could be experiancing vasculitis. (2) Sepsis: Code(s): A41.9 - Sepsis, unspecified organism Status: Resolved Assessment and Plan: Patient meeting sepsis criteria with T-max of 11.1, respiratory rate 25, hypotension with lowest reading 87/56, known cellulitis to left lower extremity, Lactic acidosis 2.5. WBC back down within normal limits. Blood cultures no growth to date Azithromycin, Vancomycin and Rocephin initiated on admission. Patient has long history of infections that have been treated at [facility]. According to family he has had difficult to treat infections. Attempting to get records from [facility]. Discussed with ID pharmacist and recommended initiating Linezolid and discontinuing vancomycin azithromycin. Fluids discontinue. MRSA not detected Resolved (3) Sepsis associated hypotension: Code(s): A41.9 - Sepsis, unspecified organism; I95.9 - Hypotension, unspecified Status: Resolved Assessment and Plan: see above (4) Hypokalemia: Code(s): E87.6 - Hypokalemia Status: Resolved Assessment and Plan: initial potassium 2.9, he received 40 mEq of potassium in the ED continue to trend labs replenish potassium as needed (5) History of hyperlipidemia: Code(s): Z86.39 - Personal history of other endocrine, nutritional and metabolic disease Status: Chronic Assessment and Plan: continue atorvastatin 40 mg p.o. daily, home dose (6) History of atrial fibrillation: Code(s): Z86.79 - Personal history of other diseases of the circulatory system Status: Acute Assessment and Plan: amiodarone and metoprolol on hold due to his hypotension and his bradycardia with rate of 48 echocardiogram with EF of 55-60%, mild aortic valve regurgitation and mild tricuspid valve regurgitation continue Xarelto 20 mg p.o. daily (7) Hypothyroidism: Code(s): E03.9 - Hypothyroidism, unspecified Status: Acute Assessment and Plan: continue levothyroxine 100 mcg p.o. daily, home dose (8) History of hypertension: Code(s): Z86.79 - Personal history of other diseases of the circulatory system Status: Acute Assessment and Plan: patient currently hypotensive with blood pressures ranging 84/47 to 102/64 continue to hold amlodipine 5 mg isosorbide 60 mg, lisinopril 10 mg due to hypotension due to sepsis (9) Wheezing on expiration: Code(s): R06.2 - Wheezing Status: Acute Assessment and Plan: Lungs clear to auscultation with notable wheezing Albuterol breathing treatments ordered scheduled and p.r.n. patient uses a CPAP for ANTHONY, he did state that he does not regularly clean the tubing MRSA swab negative chlamydia pneumoniae, mycoplasma pneumoniae, urine strep, and urine Legionella sent as precautionary. Sputum culture negative.
--- NOTE | 2023-08-27 15:51 | PCRCNOTE ---
Window of time for administration has passed. See next scheduled administration.
[2023-08-27] MEDS: FUROSEMIDE INJ 40 MG/4 ML VIAL IV PUSH (17:46)
[2023-08-27] MEDS: methylPREDNISolone SOD SUCC 125 MG VIAL IV PUSH (17:54)
[2023-08-27] MEDS: RIVAROXABAN 20 MG TABLET PO (17:54)
[2023-08-28] VITALS (17 sets, daily range): BP systolic 129–140; BP diastolic 72–85; PULSE 52–59; RESP 14–20; TEMP 35.8–36.6; O2SAT 95–100
[2023-08-28 02:20] LABS: Legionella pneumophila Ag Ur Not Detected (Not Detected)
[2023-08-28] MEDS: cefTRIAXone 2 GM/NS 100 ML 2 GM/100 ML BAG IVPB (06:00)
[2023-08-28] MEDS: LEVOTHYROXINE SODIUM 100 MCG TABLET PO (06:00)
[2023-08-28 06:48] LABS: Basophils Percent Auto 0.4 % (0.2-1.2); Hematocrit 44.5 % (42.0-52.0); Hemoglobin 14.3 g/dL (14.0-18.0); Immature Granulocyte Absolute 0.24 K/mm3 (0.00-0.031); Immature Granulocyte Percent A 4.3 % (0-0.5); Lymphocytes Absolute Auto 0.71 K/mm3 (0.9-3.2); Lymphocytes Percent Auto 12.7 % (18.3-44.2); Mean Corpuscular HGB Conc 32.1 g/dl (32-36); Mean Corpuscular Hemoglobin 31.6 pg (26-34); Mean Corpuscular Volume 98.5 fl (80-100); Mean Platelet Volume 10.7 fl (7.4-10.4); Monocytes Absolute Auto 0.1 K/mm3 (0.1-0.6); Monocytes Percent Auto 2.5 % (2.6-8.5); Neutrophils Absolute Auto 4.5 K/mm3 (1.3-6.7); Neutrophils Percent Auto 80.1 % (45.5-73.1); Platelet Count Result 177 k/mm3 (150-375); Red Blood Count 4.52 M/mm3 (4.6-6.20); Red Cell Distribution Width 12.5 % (11.5-14.5); White Blood Count 5.6 K/mm3 (4.5-10.0)
[2023-08-28 06:59] LABS: Alanine Aminotransferase 58 U/L (6-50); Albumin Level 3.6 g/dL (3.5-5.1); Alkaline Phosphatase 96 U/L (38-126); Anion Gap 8 mmol/L (8-16); Aspartate Amino Transferase 38 U/L (17-59); Bilirubin,Total 0.9 mg/dL (0.2-1.3); Blood Urea Nitrogen 20 mg/dL (9-20); Calcium 9.1 mg/dL (8.4-10.2); Carbon Dioxide 28 mmol/L (22-30); Chloride 102 mmol/L (98-107); Estimated CRCL calculation 110 ml/min; Estimated Glomerular Filt Rate > 60; Glucose 158 mg/dL (65-110); Potassium 4.2 mmol/L (3.4-5.0); Sodium 138 mmol/L (137-145)
[2023-08-28] MEDS: ALBUTEROL SULFATE NEB 2.5 MG/3 ML INH INHALATION ×3 (08:21→19:36)
[2023-08-28] MEDS: ATORVASTATIN 40 MG TABLET PO (08:22)
[2023-08-28] MEDS: PANTOPRAZOLE 40 MG TABLET PO (08:23)
[2023-08-28] MEDS: ASPIRIN 81 MG ENTERIC TABLET PO (08:23)
[2023-08-28] MEDS: LINEZOLID 600 MG TABLET PO ×2 (08:24→20:52)
[2023-08-28] MEDS: guaiFENesin 600 MG/DEXTROMETHORPHAN 30 MG SR TAB 12 HR 1 TAB PO ×2 (08:24→20:52)
--- NOTE | 2023-08-28 12:00 | P.PNIM_ITS ---
Progress Note: A&P Assessment and Plan (1) Cellulitis: Code(s): L03.90 - Cellulitis, unspecified Status: Acute Assessment and Plan: Patient presents with left lower extremity swelling, erythema, warmth. * CT of the chest pelvis contrast showed mild right inguinal lymphadenopathy anterior inflammatory change in the proximal left lower extremity * tib-fib x-ray showed apparent diffuse soft tissue edema the lower limb without acute osseous abnormality identified * patient has personal history of cellulitis to his lower extremity needing IV antibiotics, especially the left leg * ultrasound venous Doppler of the left lower extremity negative for DVT. * History of strep infections unsure if it is wound or blood. * Discussed with ID pharmacist based on patient's history and he recommended linezolid and Rocephin. * Patient wanting to try compression stockings and he can proceed with that. * furosemide p.r.n. for edema (2) Sepsis: Code(s): A41.9 - Sepsis, unspecified organism Status: Resolved Assessment and Plan: Patient meeting sepsis criteria with T-max of 11.1, respiratory rate 25, hypotension with lowest reading 87/56, known cellulitis to left lower extremity, Lactic acidosis 2.5. * WBC back down within normal limits. * Blood cultures no growth to date * Azithromycin, Vancomycin and Rocephin initiated on admission. Patient has long history of infections that have been treated at [facility]. According to family he has had difficult to treat infections. Attempting to get records from [facility]. Discussed with ID pharmacist and recommended initiating Linezolid and discontinuing vancomycin azithromycin. * Fluids discontinue. * MRSA not detected Resolved (3) Sepsis associated hypotension: Code(s): A41.9 - Sepsis, unspecified organism; I95.9 - Hypotension, unspecified Status: Resolved Assessment and Plan: see above (4) Hypokalemia: Code(s): E87.6 - Hypokalemia Status: Resolved Assessment and Plan: * initial potassium 2.9, he received 40 mEq of potassium in the ED * continue to trend labs * replenish potassium as needed (5) History of hyperlipidemia: Code(s): Z86.39 - Personal history of other endocrine, nutritional and metabolic disease Status: Chronic Assessment and Plan: * continue atorvastatin 40 mg p.o. daily, home dose (6) History of atrial fibrillation: Code(s): Z86.79 - Personal history of other diseases of the circulatory system Status: Acute Assessment and Plan: * amiodarone and metoprolol on hold due to his hypotension and his bradycardia with rate of 48 * echocardiogram with EF of 55-60%, mild aortic valve regurgitation and mild tricuspid valve regurgitation * continue Xarelto 20 mg p.o. daily (7) Hypothyroidism: Code(s): E03.9 - Hypothyroidism, unspecified Status: Acute Assessment and Plan: * continue levothyroxine 100 mcg p.o. daily, home dose (8) History of hypertension: Code(s): Z86.79 - Personal history of other diseases of the circulatory system Status: Acute Assessment and Plan: * patient currently hypotensive with blood pressures ranging 84/47 to 102/64 * continue to hold amlodipine 5 mg isosorbide 60 mg, lisinopril 10 mg due to hypotension due to sepsis (9) Wheezing on expiration: Code(s): R06.2 - Wheezing Status: Ac
--- NOTE | 2023-08-28 12:00 | PM.IMPN ---
Progress Note: A&P Assessment and Plan (1) Cellulitis: Code(s): L03.90 - Cellulitis, unspecified Status: Acute Assessment and Plan: Patient presents with left lower extremity swelling, erythema, warmth. CT of the chest pelvis contrast showed mild right inguinal lymphadenopathy anterior inflammatory change in the proximal left lower extremity tib-fib x-ray showed apparent diffuse soft tissue edema the lower limb without acute osseous abnormality identified patient has personal history of cellulitis to his lower extremity needing IV antibiotics, especially the left leg ultrasound venous Doppler of the left lower extremity negative for DVT. History of strep infections unsure if it is wound or blood. Discussed with ID pharmacist based on patient's history and he recommended linezolid and Rocephin. Patient wanting to try compression stockings and he can proceed with that. furosemide p.r.n. for edema (2) Sepsis: Code(s): A41.9 - Sepsis, unspecified organism Status: Resolved Assessment and Plan: Patient meeting sepsis criteria with T-max of 11.1, respiratory rate 25, hypotension with lowest reading 87/56, known cellulitis to left lower extremity, Lactic acidosis 2.5. WBC back down within normal limits. Blood cultures no growth to date Azithromycin, Vancomycin and Rocephin initiated on admission. Patient has long history of infections that have been treated at [facility]. According to family he has had difficult to treat infections. Attempting to get records from [facility]. Discussed with ID pharmacist and recommended initiating Linezolid and discontinuing vancomycin azithromycin. Fluids discontinue. MRSA not detected Resolved (3) Sepsis associated hypotension: Code(s): A41.9 - Sepsis, unspecified organism; I95.9 - Hypotension, unspecified Status: Resolved Assessment and Plan: see above (4) Hypokalemia: Code(s): E87.6 - Hypokalemia Status: Resolved Assessment and Plan: initial potassium 2.9, he received 40 mEq of potassium in the ED continue to trend labs replenish potassium as needed (5) History of hyperlipidemia: Code(s): Z86.39 - Personal history of other endocrine, nutritional and metabolic disease Status: Chronic Assessment and Plan: continue atorvastatin 40 mg p.o. daily, home dose (6) History of atrial fibrillation: Code(s): Z86.79 - Personal history of other diseases of the circulatory system Status: Acute Assessment and Plan: amiodarone and metoprolol on hold due to his hypotension and his bradycardia with rate of 48 echocardiogram with EF of 55-60%, mild aortic valve regurgitation and mild tricuspid valve regurgitation continue Xarelto 20 mg p.o. daily (7) Hypothyroidism: Code(s): E03.9 - Hypothyroidism, unspecified Status: Acute Assessment and Plan: continue levothyroxine 100 mcg p.o. daily, home dose (8) History of hypertension: Code(s): Z86.79 - Personal history of other diseases of the circulatory system Status: Acute Assessment and Plan: patient currently hypotensive with blood pressures ranging 84/47 to 102/64 continue to hold amlodipine 5 mg isosorbide 60 mg, lisinopril 10 mg due to hypotension due to sepsis (9) Wheezing on expiration: Code(s): R06.2 - Wheezing Status: Acute Assessment and Plan: Lungs clear to auscultation with notable wheezing Albuterol breathing treatments ordered scheduled and p.r.n. patient uses a CPAP for ANHTONY, he did state that he does not regularly clean the tubing MRSA swab negative chlamydia pneumoniae, mycoplasma pneumoniae, urine strep, and urine Legionella sent as precautionary. Sputum culture negative. Subjective Date/time seen: 08/28/23 12:00 Interval history: Patient doing better today.
[2023-08-28] MEDS: FUROSEMIDE INJ 40 MG/4 ML VIAL IV PUSH (12:27)
[2023-08-28] MEDS: RIVAROXABAN 20 MG TABLET PO (16:54)
[2023-08-29] VITALS (10 sets, daily range): BP systolic 136; BP diastolic 63; PULSE 47–56; RESP 13–18; TEMP 36.2; O2SAT 97–99
[2023-08-29] MEDS: ALBUTEROL SULFATE NEB 2.5 MG/3 ML INH INHALATION ×2 (01:48→08:09)
[2023-08-29] MEDS: cefTRIAXone 2 GM/NS 100 ML 2 GM/100 ML BAG IVPB (05:33)
[2023-08-29] MEDS: LEVOTHYROXINE SODIUM 100 MCG TABLET PO (05:34)
[2023-08-29 06:25] LABS: Basophils Percent Auto 0.3 % (0.2-1.2); Hematocrit 43.1 % (42.0-52.0); Hemoglobin 14.3 g/dL (14.0-18.0); Immature Granulocyte Absolute 0.44 K/mm3 (0.00-0.031); Immature Granulocyte Percent A 4.7 % (0-0.5); Lymphocytes Absolute Auto 1.07 K/mm3 (0.9-3.2); Lymphocytes Percent Auto 11.5 % (18.3-44.2); Mean Corpuscular HGB Conc 33.2 g/dl (32-36); Mean Corpuscular Hemoglobin 32.1 pg (26-34); Mean Corpuscular Volume 96.6 fl (80-100); Mean Platelet Volume 10.5 fl (7.4-10.4); Monocytes Absolute Auto 0.9 K/mm3 (0.1-0.6); Monocytes Percent Auto 9.9 % (2.6-8.5); Neutrophils Absolute Auto 6.9 K/mm3 (1.3-6.7); Neutrophils Percent Auto 73.6 % (45.5-73.1); Platelet Count Result 205 k/mm3 (150-375); Red Blood Count 4.46 M/mm3 (4.6-6.20); Red Cell Distribution Width 12.6 % (11.5-14.5); White Blood Count 9.3 K/mm3 (4.5-10.0)
[2023-08-29 06:49] LABS: Alanine Aminotransferase 75 U/L (6-50); Albumin Level 3.6 g/dL (3.5-5.1); Alkaline Phosphatase 100 U/L (38-126); Anion Gap 9 mmol/L (8-16); Aspartate Amino Transferase 54 U/L (17-59); Bilirubin,Total 0.6 mg/dL (0.2-1.3); Blood Urea Nitrogen 18 mg/dL (9-20); Calcium 9.1 mg/dL (8.4-10.2); Carbon Dioxide 27 mmol/L (22-30); Chloride 102 mmol/L (98-107); Estimated CRCL calculation 123 ml/min; Estimated Glomerular Filt Rate > 60; Glucose 127 mg/dL (65-110); Potassium 3.5 mmol/L (3.4-5.0); Sodium 138 mmol/L (137-145)
[2023-08-29] MEDS: ASPIRIN 81 MG ENTERIC TABLET PO (09:16)
[2023-08-29] MEDS: PANTOPRAZOLE 40 MG TABLET PO (09:16)
[2023-08-29] MEDS: guaiFENesin 600 MG/DEXTROMETHORPHAN 30 MG SR TAB 12 HR 1 TAB PO (09:16)
[2023-08-29] MEDS: ATORVASTATIN 40 MG TABLET PO (09:16)
[2023-08-29] MEDS: LINEZOLID 600 MG TABLET PO (09:16)
--- NOTE | 2023-08-29 12:11 | PM.DS ---
DS: Admitting Diagnosis Discharge Date 08/29/23 Admitting Diagnosis left lower extremity cellulitis DS: Discharge Diagnosis Discharge Diagnosis (1) Cellulitis: Code(s): L03.90 - Cellulitis, unspecified Status: Acute (2) Sepsis: Code(s): A41.9 - Sepsis, unspecified organism Status: Resolved (3) Sepsis associated hypotension: Code(s): A41.9 - Sepsis, unspecified organism; I95.9 - Hypotension, unspecified Status: Resolved (4) Hypokalemia: Code(s): E87.6 - Hypokalemia Status: Resolved (5) History of hyperlipidemia: Code(s): Z86.39 - Personal history of other endocrine, nutritional and metabolic disease Status: Chronic (6) History of atrial fibrillation: Code(s): Z86.79 - Personal history of other diseases of the circulatory system Status: Acute (7) Hypothyroidism: Code(s): E03.9 - Hypothyroidism, unspecified Status: Acute (8) History of hypertension: Code(s): Z86.79 - Personal history of other diseases of the circulatory system Status: Acute (9) Wheezing on expiration: Code(s): R06.2 - Wheezing Status: Acute DS: Summary Hospital Course Hospital Course: This is a 68-year-old male with a past medical history of AFib, hyperlipidemia, hypertension, and hypothyroidism the presented to the hospital on 08/23/2023 due to cough, fever, congestion, shortness of breath and malaise. Patient had not been feeling over the past several days and took a COVID test which was negative. His max temperature at home was 103.3. Upon examination he was found to have left lower extremity swelling and redness. Patient has a a colorful history of skin infections. He mostly experiences lower extremity cellulitis but has also had periorbital cellulitis which is all been treated at [facility]. According to patient's he has history of Streptococcus infections. It was unclear whether these were wound or blood infections. His found to have a lactic acid of 2.5, hypotension with blood pressure of 84/47 and bradycardia of 48-50. patient's white count did get as high as 14.2 but then trended downward with antibiotic therapy. Blood cultures were obtained and remained negative x5 days. He was recently started on vancomycin, Rocephin and azithromycin but due to his history of aggressive infections it was changed to linezolid and ceftriaxone. His MRSA screen was negative. Patient's redness and swelling did improve over several days. He was given a couple doses of IV Lasix intermittently to aid with swelling. Patient's hypotension improved with IV fluids. Bilateral Doppler ultrasounds negative for DVT. Patient's blood pressure medications were put on hold originally. His amiodarone and metoprolol were restarted when he became more tachycardic. Patient then became stable with heart rate in the mid 50s. His metoprolol was then put on hold. Patient did not have any symptoms with a low heart rate. His blood pressure remained within normal limits and his medications were not restarted. It was advised that due to patient's good blood pressure while he was in the hospital that he hold these medications going home and do serial blood pressures at home while keeping a log and following up with his primary care provider. Patient's swelling and redness improved during his hospital stay. There was some residual redness and swelling on day of discharge but should improve with time. His labs and vital signs are stable and he is medically clear for discharge at this time. Time Spent with Patient Time attestation: Total time spent providing and/or coordinating discharge services: Exam Narrative: GENERAL: Comfortable, no acute distress, morbidly obese HENMT: moist mucous membranes EYES: EOM intact b/l NECK: no lymphadenopathy RESPIRATORY: clear to auscultation CARDIO: RRR GI: soft, nontender, bowel sounds present SKIN: no rashes EXTREMITIES: Left lower
== END 2023-08-29 14:00 | disposition home or self-care (01) | DRG 603 ==
LOC: ANHED 08-23 03:15 → ANH3MEDSUR 08-23 05:53
PROVIDERS: Emergency Medicine; Nurse Practitioner Acute Care; Admitting Provider Internal Medicine; Emergency Provider Physician Assistant; Visit Provider Internal Medicine Critical Care Medicine
DX: L03.116 Cellulitis of left lower limb (principal); N17.9 Acute kidney failure, unspecified; I48.20 Chronic atrial fibrillation, unspecified; I10 Essential (primary) hypertension; E87.6 Hypokalemia; E78.5 Hyperlipidemia, unspecified; E03.9 Hypothyroidism, unspecified; K21.9 Gastro-esophageal reflux disease without esophagitis; G47.33 Obstructive sleep apnea (adult) (pediatric); Z20.822 Contact with and (suspected) exposure to COVID-19; Z79.82 Long term (current) use of aspirin; Z79.01 Long term (current) use of anticoagulants
CPT/HCPCS: 36415; 71046; 71260; 73590; 74177; 80053; 81001; 83605; 83880; 84145; 84484; 85025; 85027; 85055; 85610; 85730; 86140; 87040; 87070; 87205; 87449; 87637; 87641; 87899; 93005; 93970; 93971; 94640; 96361; 96365; 96367; 99285; A9270; C8929; G0378; J0456; J0696; J1940; J2930; J3370; J7030; J7040; Q9957; Q9967

== ENCOUNTER 2023-12-29 06:30 | Emergency (ER) | payer MEDICARE, SELFPAY ==
--- NOTE | ~2023-12-29 | XR_ITS ---
Thoracic spine: Clinical Indication: Back pain AP and lateral views were performed. No fracture is seen. There is normal alignment of the vertebrae. There are mild degenerative disc ch anges throughout the thoracic spine. Paravertebral soft tissues appear normal. Impression: Mild degenerative spondylosis. Reviewed, dictated and finalized at location . Impression: Mild degenerative spondylosis.
--- NOTE | ~2023-12-29 | XR_ITS ---
Lumbosacral Spine: AP and lateral views Clinical History: Pain Findings: The normal lordotic curve is maintained. The vertebral bodies and posterior elements are i ntact. There is moderate degenerative disc narrowing throughout the lumbar spine. There is moderate t o advanced facet arthropathy throughout the lumbar spine, worst at L4-L5 and L5-S1. The sacroiliac arelis ints are normally outlined. Impression: Moderate to advanced degenerative spondylosis. Reviewed, dictated and finalized at location M. Impression: Moderate to advanced degenerative spondylosis.
[2023-12-29 06:36] VITALS: BP 155/81; PULSE 60; RESP 20; TEMP 36.7; O2SAT 97
[2023-12-29 07:02] VITALS: BP 147/81; PULSE 60; RESP 13; O2SAT 95
[2023-12-29 07:17] VITALS: BP 156/82; PULSE 60; RESP 18
--- NOTE | 2023-12-29 07:27 | PC.NURSE ---
BSSR given to ALPHONSO Roche at this time.
--- NOTE | 2023-12-29 07:52 | ED.BACK ---
HPI - Back Pain/Injury General Chief Complaint: Back Pain/Injury Stated Complaint: middle back Time Seen by Provider: 12/29/23 06:59 History of Present Illness HPI Narrative: Patient is a 68-year-old male who presents ER with back pain. Right-sided. Sharp. Began 2 hours prior to arrival. He tried taking Aleve and did not get better. Pain worse is with bending and twisting. He has had this intermittently over the last year. Usually gets better if he puts a hot rag on his back. He has not had it worked up by his primary care doctor. No lower extremity numbness or tingling. No difficulty with urination defecation. No radiation into the abdomen. He is without nausea or vomiting. Reports he was using a [address] in a male post last night. Related Data Home Medications Medication Instructions Recorded Confirmed amiodarone 200 mg tablet 200 mg PO DAILY 08/23/23 08/23/23 amlodipine 5 mg tablet 5 mg PO DAILY 08/23/23 08/23/23 aspirin 81 mg tablet,delayed 81 mg PO DAILY 08/23/23 08/23/23 release atorvastatin 40 mg tablet 40 mg PO DAILY 08/23/23 08/23/23 isosorbide mononitrate 60 mg 60 mg PO DAILY 08/23/23 08/23/23 tablet,extended release 24 hr levothyroxine 100 mcg tablet 100 mcg PO DAILY 08/23/23 08/23/23 lisinopril 10 mg tablet 10 mg PO DAILY 08/23/23 08/23/23 metoprolol succinate 100 mg 100 mg PO DAILY 08/23/23 08/23/23 tablet,extended release 24 hr pantoprazole 40 mg tablet,delayed 40 mg PO DAILY 08/23/23 08/23/23 release rivaroxaban 20 mg tablet (Xarelto) 20 mg PO DAILY 08/23/23 08/23/23 Allergies Allergy/AdvReac Type Severity Reaction Status Date / Time No Known Allergies Allergy Verified 12/29/23 06:41 Review of Systems Constitutional: Constitutional: Reports no additional constitutional complaints Cardiovascular: Cardiovascular: Reports no additional cardiovascular complaints Respiratory: Respiratory: Reports no additional respiratory complaints Gastrointestinal: Gastrointestinal: Reports no additional gastrointestinal complaints Musculoskeletal: Musculoskeletal: Reports back pain, Denies arthralgias, Denies joint swelling and Reports muscle cramps Neurologic: Reports system reviewed and no additional complaints, except as documented [facility] Past Medical History Medical History (Updated 12/29/23 @ 09:04 by Radhames He MD) GERD (gastroesophageal reflux disease) History of atrial fibrillation History of hyperlipidemia History of hypertension Hypothyroidism Obstructive sleep apnea Social History Social History (System 08/25/23 @ 11:46 by Chepe Rojas) Smoking packs per day: 1 Smoking cigarettes per day: 20.0 Smoking status: Current every day smoker Tobacco type: cigarettes Alcohol intake: never Substance use: never Lack of Transportation: No Lack of Food: Never True Current Housing: I Have Housing Concerned About Future Housing: No Difficulty Paying Gas/Electric Bills: No Difficulty Paying for Meds: No Currently Unemployed: No Education: High School Diploma/GED Difficulty w/ Childcare or Family Care: No Spiritual care concerns: No Exam Narrative: GENERAL: Well-appearing, morbidly obese, and in no acute distress. HEAD: Normocephalic, atraumatic. ENT: Mucous membranes moist. CHEST: Clear to auscultation. No respiratory distress. HEART: Regular rate and rhythm. Normal peripheral pulses. Back: No midline tenderness of the T/L-spine. There is right-sided paraspinal muscle tenderness in the area of T11 through L1. No bruising or abrasions. No step-offs of the midline T-spine/L-spine. EXTREMITIES: Normal range of motion. No edema. SKIN: Warm, dry, no rash. NEURO: Alert and oriented x3. PSYCH: Normal mood and affect. Course Course Emergency Course: Minimal improvement with Toradol and valium. Discussed imaging results. Symptoms felt to be musculoskeletal in nature. Discussed slow return to work and need for follow-u
[2023-12-29] MEDS: SODIUM CHLORIDE 0.9% IV 1,000 ML 999 ML IV CONT (08:22)
[2023-12-29] MEDS: diazePAM INJ (*CRX) 10 MG/2 ML SYRINGE 5 MG IV PUSH (08:23)
[2023-12-29] MEDS: KETOROLAC 30 MG/ML VIAL (*BKC) IV PUSH (08:23)
[2023-12-29 09:17] VITALS: BP 145/79; PULSE 60; RESP 17; O2SAT 99
== END 2023-12-29 09:23 | disposition home or self-care (01) ==
PROVIDERS: Emergency Provider Emergency Medicine
DX: S39.012A Strain of muscle, fascia and tendon of lower back, initial encounter (principal); I48.91 Unspecified atrial fibrillation; I10 Essential (primary) hypertension; E78.5 Hyperlipidemia, unspecified; E03.9 Hypothyroidism, unspecified; K21.9 Gastro-esophageal reflux disease without esophagitis; G47.33 Obstructive sleep apnea (adult) (pediatric); Z79.01 Long term (current) use of anticoagulants; Z79.82 Long term (current) use of aspirin; F17.210 Nicotine dependence, cigarettes, uncomplicated; M47.816 Spondylosis without myelopathy or radiculopathy, lumbar region; M47.814 Spondylosis without myelopathy or radiculopathy, thoracic region; X50.3XXA Overexertion from repetitive movements, initial encounter
CPT/HCPCS: 72072; 72100; 96361; 96374; 96375; 99284; J1885; J3360; J7030

== ENCOUNTER 2024-01-03 06:08 | Emergency (ER) | payer MEDICARE, SELFPAY ==
[2024-01-03 06:09] VITALS: BP 159/65; PULSE 70; RESP 19; TEMP 38.1; O2SAT 96
[2024-01-03 07:32] VITALS: BP 150/73; PULSE 60; RESP 17; TEMP 37.6; O2SAT 98
[2024-01-03 08:26] VITALS: TEMP 37.1
[2024-01-03 08:54] LABS: Appearance Urine Clear (Clear); Bilirubin Urine Negative (Negative); Blood Urine Negative (Negative); Color Urine Yellow (Yellow); Glucose Urine UA Negative (Negative); Ketones Urine Negative (Negative); Leukocyte Esterase Ur Negative LEU/UL (Negative); Nitrate Urine Negative (Negative); Protein Urine Negative (Negative); Specific Grav Ur 1.022 (1.001-1.035); pH Urine 6.5 (5.0-9.0)
--- NOTE | 2024-01-03 08:58 | ED.FEVER ---
HPI - Fever General Chief Complaint: Fever Stated Complaint: fever Time Seen by Provider: 01/03/24 07:02 History of Present Illness HPI Narrative: 68-year-old male presents to the emergency department for evaluation of right ear pain. Patient states when he woke up this morning he noticed swelling of his right year. Patient denies any specific pain. Patient did have a low-grade fever. Patient does have history of cellulitis. Patient has noticed increased dry skin on both of his ears over the last few years. Related Data Home Medications Medication Instructions Recorded Confirmed amiodarone 200 mg tablet 200 mg PO DAILY 08/23/23 08/23/23 amlodipine 5 mg tablet 5 mg PO DAILY 08/23/23 08/23/23 aspirin 81 mg tablet,delayed 81 mg PO DAILY 08/23/23 08/23/23 release atorvastatin 40 mg tablet 40 mg PO DAILY 08/23/23 08/23/23 isosorbide mononitrate 60 mg 60 mg PO DAILY 08/23/23 08/23/23 tablet,extended release 24 hr levothyroxine 100 mcg tablet 100 mcg PO DAILY 08/23/23 08/23/23 lisinopril 10 mg tablet 10 mg PO DAILY 08/23/23 08/23/23 metoprolol succinate 100 mg 100 mg PO DAILY 08/23/23 08/23/23 tablet,extended release 24 hr pantoprazole 40 mg tablet,delayed 40 mg PO DAILY 08/23/23 08/23/23 release rivaroxaban 20 mg tablet (Xarelto) 20 mg PO DAILY 08/23/23 08/23/23 Allergies Allergy/AdvReac Type Severity Reaction Status Date / Time No Known Allergies Allergy Verified 12/29/23 06:41 Review of Systems Review of Systems: All systems reviewed & are unremarkable except as noted in HPI and below PMFSH Past Medical History Medical History (Updated 01/03/24 @ 09:46 by Carlos Mcdonald MD) GERD (gastroesophageal reflux disease) History of atrial fibrillation History of hyperlipidemia History of hypertension Hypothyroidism Obstructive sleep apnea Social History Social History (System 08/25/23 @ 11:46 by Chepe Rojas) Smoking packs per day: 1 Smoking cigarettes per day: 20.0 Smoking status: Current every day smoker Tobacco type: cigarettes Alcohol intake: never Substance use: never Lack of Transportation: No Lack of Food: Never True Current Housing: I Have Housing Concerned About Future Housing: No Difficulty Paying Gas/Electric Bills: No Difficulty Paying for Meds: No Currently Unemployed: No Education: High School Diploma/GED Difficulty w/ Childcare or Family Care: No Spiritual care concerns: No Exam Narrative: APPEARANCE: Well appearing, no pain, no distress, well-nourished. HEAD: normocephalic, atraumatic. EYES: PERRLA/EOMI, conjunctivae clear. NOSE: Normal no drainage EARS:TMS clear with good light reflex. THROAT: Pharynx clear, no exudate. NECK: Supple. No adenopathy, no masses. RESPIRATORY: Airway patent, respirations nonlabored. Clear to auscultation bilaterally, no rales, rhonchi, wheezing. CARDIOVASCULAR: Regular rate and rhythm without murmurs rubs or gallops. ABDOMINAL: Soft, nontender, nondistended, normal bowel sounds MUSCULOSKELETAL: Moves all extremities. Strength/ROM intact, No edema, No calf tenderness. NEURO: Alert. Cranial nerves II through XII intact. Grossly intact SKIN: Right ear swelling Course Course Emergency Course: Patient was discharged with antibiotics Vital Signs Vital signs: Vital Signs Temperature 100.5 F H 01/03/24 06:09 Pulse Rate 70 01/03/24 06:09 Respiratory Rate 19 01/03/24 06:09 Blood Pressure 159/65 H 01/03/24 06:09 Pulse Oximetry 96 01/03/24 06:09 Oxygen Delivery Room Air 01/03/24 06:09 Temperature 98.7 F 01/03/24 08:26 Pulse Rate 60 01/03/24 07:32 Respiratory Rate 17 01/03/24 07:32 Blood Pressure 150/73 H 01/03/24 07:32 Pulse Oximetry 98 01/03/24 07:32 Oxygen Delivery Room Air 01/03/24 06:09 MDM - Fever MDM Narrative Medical decision making narrative: 68-year-old male presenting to the ED for evaluation of right ear swelling. Patient was afebrile in the ED, yamileth
[2024-01-03 09:02] LABS: Add Urine Microscopic? NO
[2024-01-03 09:06] LABS: Basophils Percent Auto 0.2 % (0.2-1.2); Eosinophils Absolute Auto 0.1 K/mm3 (0-0.3); Hematocrit 41.6 % (42.0-52.0); Hemoglobin 13.8 g/dL (14.0-18.0); Immature Granulocyte Absolute 0.03 K/mm3 (0.00-0.031); Immature Granulocyte Percent A 0.3 % (0-0.5); Lymphocytes Absolute Auto 0.71 K/mm3 (0.9-3.2); Lymphocytes Percent Auto 6.2 % (18.3-44.2); Mean Corpuscular HGB Conc 33.2 g/dl (32-36); Mean Corpuscular Hemoglobin 31.7 pg (26-34); Mean Corpuscular Volume 95.4 fl (80-100); Monocytes Absolute Auto 0.9 K/mm3 (0.1-0.6); Monocytes Percent Auto 8.2 % (2.6-8.5); Neutrophils Absolute Auto 9.7 K/mm3 (1.3-6.7); Neutrophils Percent Auto 84.1 % (45.5-73.1); Platelet Count Result 165 k/mm3 (150-375); Red Blood Count 4.36 M/mm3 (4.6-6.20); Red Cell Distribution Width 12.6 % (11.5-14.5); White Blood Count 11.5 K/mm3 (4.5-10.0)
[2024-01-03 09:17] LABS: Alanine Aminotransferase 26 U/L (6-50); Albumin Level 3.6 g/dL (3.5-5.1); Alkaline Phosphatase 105 U/L (38-126); Anion Gap 0 mmol/L (8-16); Aspartate Amino Transferase 29 U/L (17-59); Bilirubin,Total 0.6 mg/dL (0.2-1.3); Blood Urea Nitrogen 24 mg/dL (9-20); Carbon Dioxide 31 mmol/L (22-30); Chloride 106 mmol/L (98-107); Estimated CRCL calculation 122 ml/min; Estimated Glomerular Filt Rate > 60; Glucose 128 mg/dL (65-110); Potassium 4.5 mmol/L (3.4-5.0); Sodium 137 mmol/L (137-145)
[2024-01-03 09:26] LABS: Influenza A QL RT-PCR Negative (Negative); Influenza B QL RT-PCR Negative (Negative); RSV RNA, RT-PCR Negative (Negative); SARS-CoV-2 RNA PCR Negative (Negative)
== END 2024-01-03 10:13 | disposition home or self-care (01) ==
PROVIDERS: Emergency Provider Emergency Medicine
DX: H60.11 Cellulitis of right external ear (principal); Z20.822 Contact with and (suspected) exposure to COVID-19; I48.91 Unspecified atrial fibrillation; I10 Essential (primary) hypertension; E78.5 Hyperlipidemia, unspecified; E03.9 Hypothyroidism, unspecified; G47.33 Obstructive sleep apnea (adult) (pediatric); K21.9 Gastro-esophageal reflux disease without esophagitis; F17.210 Nicotine dependence, cigarettes, uncomplicated; Z79.82 Long term (current) use of aspirin; Z79.01 Long term (current) use of anticoagulants
CPT/HCPCS: 36415; 80053; 85025; 87637; 96365; 99284; J0696